=== PATIENT | female | born 1950 | race Caucasian/White ===

== ENCOUNTER 2019-10-19 07:19 | Day surgery (SDC) | payer MEDICARE, BC ==
[2019-10-14 14:40] LABS: BASOPHILS # (AUTO) 0.1 X10'3 (0-0.2); BASOPHILS % (AUTO) 0.8 % (0-1); EOSINOPHILS # (AUTO) 0.1 X10'3 (0-0.9); EOSINOPHILS % (AUTO) 1.3 % (0-6); HEMATOCRIT 43.8 % (35.0-45.0); HEMOGLOBIN 15.3 g/dl (12.0-16.0); LYMPHOCYTES # (AUTO) 1.9 X10'3 (1.1-4.8); LYMPHOCYTES % (AUTO) 29.8 % (21-51); MEAN CORPUSCULAR HEMOGLOBIN 32.9 PG (27.0-31.0); MEAN CORPUSCULAR VOLUME 94.1 FL (78-98); MEAN PLATELET VOLUME 7.9 FL (7.4-10.4); MONOCYTES # (AUTO) 0.5 X10'3 (0-0.9); MONOCYTES % (AUTO) 8.1 % (2-12); NEUTROPHILS # (AUTO) 3.8 X10'3 (1.8-7.7); PLATELET COUNT 212 X10'3 (140-440); RED BLOOD COUNT 4.66 X10'6 (4.20-5.60); RED CELL DISTRIBUTION WIDTH 12.7 % (11.5-14.5); WHITE BLOOD COUNT 6.4 X10'3 (4.5-11.0)
[2019-10-14 14:52] LABS: ALANINE AMINOTRANSFERASE 41 U/L (12-78); ALBUMIN 3.9 G/DL (3.4-5.0); ALBUMIN/GLOBULIN RATIO 1.1 (1.1-1.5); ALKALINE PHOSPHATASE 113 IU/L (46-116); ANION GAP 8 (8-16); ASPARTATE AMINO TRANSFERASE 24 U/L (10-37); BILIRUBIN,TOTAL 0.6 MG/DL (0.1-1.0); BLOOD UREA NITROGEN 21 MG/DL (7-18); BUN/CREATININE RATIO 24.7 (6.6-38.0); CALCIUM 9.2 MG/DL (8.5-10.1); CHLORIDE 106 MMOL/L (99-107); CREATININE 0.85 MG/DL (0.40-0.90); GLUCOSE 99 MG/DL (70-104); POTASSIUM 4.1 MMOL/L (3.5-5.1); SODIUM 143 MMOL/L (135-145); TOTAL CARBON DIOXIDE 28.6 MMOL/L (24-32); TOTAL PROTEIN 7.5 G/DL (6.4-8.2); eGFR 67 ML/MIN
[2019-10-14 15:15] LABS: PARTIAL THROMBOPLASTIN TIME 27 SECONDS (22-32)
[2019-10-19] VITALS (16 sets, daily range): BP systolic 95–124; BP diastolic 49–70
[~2019-10-19] VITALS: Ht 162.6 cm; Wt 72.1 kg
[2019-10-19] MEDS ORDERED: diphenhydrAMINE 25mg capsule PO PRN (07:35)
[2019-10-19] MEDS ORDERED: nitroGLYCERIN 0.4mg SUBLingual tab SL PRN (07:35)
[2019-10-19] MEDS ORDERED: normal saline 1,000 ML IV SCH (07:35)
[2019-10-19] MEDS ORDERED: LORazepam 0.5 MG tablet PO PRN (07:35)
[2019-10-19] MEDS ORDERED: ATEN-169 PO (07:40)
[2019-10-19] MEDS ORDERED: ATOR80TA PO (07:40)
[2019-10-19] MEDS ORDERED: FOLI0.4T2 PO (07:40)
[2019-10-19] MEDS ORDERED: FISH12002 PO (07:40)
[2019-10-19] MEDS ORDERED: ASPI81TA52 PO (07:40)
[2019-10-19] MEDS ORDERED: CYAN-51 PO (07:40)
[2019-10-19] MEDS ORDERED: ASCO500C15 PO (07:40)
[2019-10-19] MEDS ORDERED: midazolam 2 mg/2 ml injection ONE (08:40)
[2019-10-19] MEDS ORDERED: iohexol 350 MG/ML 50ML vial IV ONE (08:40)
[2019-10-19] MEDS ORDERED: LIDOcaine 1% (10mg/ml)w/preservative injection 20ml MDV ONE (08:40)
[2019-10-19] MEDS ORDERED: iohexol 350MG/ML 100ml bottle IV ONE (08:40)
[2019-10-19] MEDS ORDERED: fentaNYL/PF 50MCG/1 ML 2ML syringe ONE (08:40)
[2019-10-19 08:45] LABS: TROPONIN I < 0.04 NG/ML (0.0-0.05)
[2019-10-19] MEDS ORDERED: HYDROcodone/acetaminophen 5mg/325mg tablet PO PRN (10:35)
[2019-10-19] MEDS ORDERED: proCHLORperazine 10 MG/2 ml inj IV PRN (10:35)
[2019-10-19] MEDS ORDERED: acetaminophen 325mg tablet PO PRN (10:35)
[2019-10-19] MEDS ORDERED: ondansetron/PF 4mg/2ml inj IV PRN (10:35)
[2019-10-19] MEDS ORDERED: HYDROcodone/acetaminophen 10/325mg tab PO PRN (10:35)
[2019-10-19] MEDS ORDERED: OXAZEpam 15mg capsule PO PRN (10:35)
== END 2019-10-19 16:00 | disposition home or self-care (01) ==
LOC: SSTAY O 07:19
PROVIDERS: ATTEND Internal Medicine Cardiovascular Disease
DX: I25.119 Atherosclerotic heart disease of native coronary artery with unspecified angina pectoris (principal); I10 Essential (primary) hypertension; E78.5 Hyperlipidemia, unspecified; Z87.891 Personal history of nicotine dependence; Z95.5 Presence of coronary angioplasty implant and graft; M19.90 Unspecified osteoarthritis, unspecified site; Z79.01 Long term (current) use of anticoagulants; R06.02 Shortness of breath; Z79.899 Other long term (current) drug therapy
CPT/HCPCS: 36415; 71046; 80053; 83880; 84484; 85025; 85610; 85730; 93005; 93458; 99152; 99153; C1769; J1644; J2001; J2250; J3010; J7030; Q0163; Q9967; A4620; A6258; C1760